=== PATIENT | female | born 1950 | race Caucasian/White ===

== ENCOUNTER → 2017-03-02 | Outpatient (CLI) | payer MEDICARE ==
[~2017-03-02] MED LIST: ASPI-515 PO; ATOR20TA PO; CHOL20003 PO; CITA10TA8 PO; CYAN10005 PO; FLAX100016 PO; HYDR12.58 PO; LORA-445 PO; MULT-208 PO; UBID200C4 PO; VITA10002 PO; [UNRECOGNIZED DRUG - OTHER] PO
[2017-03-02 15:41] LABS: BLOOD UREA NITROGEN 13 mg/dL (7-18)
== END | disposition home or self-care (01) ==
LOC: LAB 14:25
PROVIDERS: ATTEND Radiology Radiation Oncology
DX: C34.12 Malignant neoplasm of upper lobe, left bronchus or lung (principal); T50.8X4A Poisoning by diagnostic agents, undetermined, initial encounter
CPT/HCPCS: 36415; 82565; 84520

== ENCOUNTER → 2017-03-11 | Outpatient (CLI) | payer MEDICARE ==
[~2017-03-11] MED LIST changes: +OMNIPAQUE 350 MG/ML, 75ML BOTTLE ONE
== END | disposition home or self-care (01) ==
LOC: CFH 10:01
PROVIDERS: ATTEND Radiology Radiation Oncology
DX: C34.12 Malignant neoplasm of upper lobe, left bronchus or lung (principal); J43.9 Emphysema, unspecified; I70.0 Atherosclerosis of aorta; R91.8 Other nonspecific abnormal finding of lung field
CPT/HCPCS: 71260; Q9967

== ENCOUNTER → 2017-08-14 | Outpatient (CLI) | payer MEDICARE ==
[~2017-08-14] MED LIST changes: +CHOL2000 PO; -CHOL20003 PO; -OMNIPAQUE 350 MG/ML, 75ML BOTTLE ONE; -UBID200C4 PO; +UBID200C7 PO
== END | disposition home or self-care (01) ==
LOC: ROC 12:47
PROVIDERS: ATTEND Radiology Radiation Oncology
DX: C34.12 Malignant neoplasm of upper lobe, left bronchus or lung (principal)
CPT/HCPCS: G0463

== ENCOUNTER → 2017-08-20 | Outpatient (CLI) | payer MEDICARE | END | disposition home or self-care (01) | LOC: CFH 13:12 | PROVIDERS: ATTEND Radiology Radiation Oncology | DX: N63.20 Unspecified lump in the left breast, unspecified quadrant (principal); I10 Essential (primary) hypertension; Z85.118 Personal history of other malignant neoplasm of bronchus and lung | CPT/HCPCS: 76641; G0206 ==

== ENCOUNTER → 2017-08-24 | Outpatient (CLI) | payer MEDICARE ==
[~2017-08-24] MED LIST changes: +LIDOCAINE 1%, 20ML ONE; +LIDOCAINE 1%-EPI 1:100K, 20ML ONE
== END | disposition home or self-care (01) ==
LOC: CFH 10:16
PROVIDERS: ATTEND Radiology Radiation Oncology
DX: N63.20 Unspecified lump in the left breast, unspecified quadrant (principal); C34.12 Malignant neoplasm of upper lobe, left bronchus or lung
CPT/HCPCS: 19083; 88305; G0206; J3490

== ENCOUNTER 2017-09-07 11:33 | Day surgery (SDC) | payer MEDICARE ==
[~2017-09-07] VITALS: Ht 167.6 cm; Wt 88.5 kg
[~2017-09-07 11:33] MED LIST changes: +BUPIVACAINE/PF 0.5% ONE; -LIDOCAINE 1%, 20ML ONE; -LIDOCAINE 1%-EPI 1:100K, 20ML ONE
[2017-09-07] MEDS ORDERED: LIDOCAINE 1%, 20ML ONE (12:58)
[2017-09-07 13:55] VITALS: BP 148/72
[2017-09-07] MEDS ORDERED: LACTATED RINGERS 1,000 ML IV SCH (13:58)
[2017-09-07] MEDS ORDERED: FENTANYL PF 250 MCG/5ML ONE (13:59)
[2017-09-07] MEDS ORDERED: MIDAZOLAM 1 MG/ML, 2ML ONE (13:59)
[2017-09-07] MEDS ORDERED: DEXAMETHASONE 4 MG/ML, 1ML ONE (14:01)
[2017-09-07] MEDS ORDERED: CEFAZOLIN 1,000 MG ONE (14:01)
[2017-09-07] MEDS ORDERED: SUCCINYLCHOLINE 20 MG/ML, 10ML ONE (14:01)
[2017-09-07] MEDS ORDERED: ONDANSETRON 2MG/ML, 2ML ONE (14:01)
[2017-09-07] MEDS ORDERED: PROPOFOL 10 MG/ML, 20ML ONE (14:01)
[2017-09-07] MEDS ORDERED: EPHEDRINE 50 MG/ML, 1ML ONE (15:02)
[2017-09-07] MEDS ORDERED: KETOROLAC 30 MG/1 ML ONE (15:10)
[2017-09-07] MEDS ORDERED: LABETALOL 5MG/ML, 20ML IV PRN (15:30)
[2017-09-07] MEDS ORDERED: MEPERIDINE/PF 25MG/0.5ML IVPush PRN (15:30)
[2017-09-07] MEDS ORDERED: FENTANYL PF 100 MCG/2ML IV PRN (15:30)
[2017-09-07] MEDS ORDERED: ALBUTEROL/IPRATROPIUM 2.5MG/0.5MG, 3 ML NPPB PRN (15:30)
[2017-09-07] MEDS ORDERED: OXYcodone 5 MG/5 ML ORAL.SOL UDC PO PRN (15:30)
[2017-09-07] MEDS ORDERED: HYDROmorphone 1 MG/ML, 1ML IV PRN (15:30)
[2017-09-07] MEDS ORDERED: LORazepam 2 MG/ML, 1ML IVPush PRN (15:30)
[2017-09-07] MEDS ORDERED: ONDANSETRON 2MG/ML, 2ML IVPush PRN (15:30)
[2017-09-07] MEDS ORDERED: ACETAMINOPHEN 325 MG TABLET PO PRN (15:30)
[2017-09-07] MEDS ORDERED: hydrALAzine 20 MG/ML, 1ML IV PRN (15:30)
[2017-09-07] MEDS ORDERED: MIDAZOLAM 1 MG/ML, 2ML IV PRN (15:30)
[2017-09-07] MEDS ORDERED: METOCLOPRAMIDE 5 MG/ML, 2ML IV PRN (15:30)
[2017-09-07] MEDS ORDERED: PROMETHAZINE 25 MG/ML, 1ML IV PRN (15:30)
[2017-09-07] MEDS ORDERED: DIAZEPAM 5 MG/ML, 2ML IVPush PRN (15:30)
[2017-09-07] MEDS ORDERED: ACETAMINOPHEN 650 MG/20.3 ML UDC ONE (15:54)
[2017-09-07] MEDS ORDERED: OXYcodone 5 MG/5 ML ORAL.SOL UDC ONE (15:54)
[2017-09-07] MEDS ORDERED: FENTANYL PF 100 MCG/2ML ONE (15:54)
== END 2017-09-07 18:40 | disposition home or self-care (01) ==
LOC: CFH 11:33 → EDSTATUS 16:15 → OUT 18:40
PROVIDERS: ATTEND Surgery
DX: C50.912 Malignant neoplasm of unspecified site of left female breast (principal); F41.9 Anxiety disorder, unspecified; F32.9 Major depressive disorder, single episode, unspecified; E78.00 Pure hypercholesterolemia, unspecified; I10 Essential (primary) hypertension; Z85.118 Personal history of other malignant neoplasm of bronchus and lung; Z90.710 Acquired absence of both cervix and uterus; Z98.890 Other specified postprocedural states; Z79.82 Long term (current) use of aspirin
CPT/HCPCS: 19285; 19301; 38525; 38792; 88305; 88307; A9541; G0206; J0330; J0690; J1100; J1885; J2250; J2405; J2704; J3010; J3490; J7120

== ENCOUNTER → 2017-09-25 | Outpatient (CLI) | payer MEDICARE ==
[~2017-09-25] MED LIST changes: -BUPIVACAINE/PF 0.5% ONE
== END | disposition home or self-care (01) ==
LOC: ROC 10:07
PROVIDERS: ATTEND Radiology Radiation Oncology
DX: Z08 Encounter for follow-up examination after completed treatment for malignant neoplasm (principal); C34.12 Malignant neoplasm of upper lobe, left bronchus or lung; C50.912 Malignant neoplasm of unspecified site of left female breast
CPT/HCPCS: 99213; G0463

== ENCOUNTER → 2017-10-16 | Outpatient (CLI) | payer MEDICARE | END | disposition home or self-care (01) | LOC: ROC 13:30 | PROVIDERS: ATTEND Radiology Radiation Oncology | DX: C50.912 Malignant neoplasm of unspecified site of left female breast (principal); C78.02 Secondary malignant neoplasm of left lung | CPT/HCPCS: G0463 ==

== ENCOUNTER → 2017-12-09 | Outpatient (CLI) | payer MEDICARE | END | disposition home or self-care (01) | LOC: ROC 13:13 | PROVIDERS: ATTEND Radiology Radiation Oncology | DX: C50.912 Malignant neoplasm of unspecified site of left female breast (principal) | CPT/HCPCS: G0463 ==

== ENCOUNTER → 2018-08-03 | Outpatient (CLI) | payer MEDICARE ==
[~2018-08-03] MED LIST changes: +OMNIPAQUE 350 MG/ML, 75ML BOTTLE ONE
== END | disposition home or self-care (01) ==
LOC: CFH 13:05
PROVIDERS: ATTEND Radiology Radiation Oncology
DX: Z12.31 Encounter for screening mammogram for malignant neoplasm of breast (principal); R91.8 Other nonspecific abnormal finding of lung field; C34.12 Malignant neoplasm of upper lobe, left bronchus or lung; Z85.3 Personal history of malignant neoplasm of breast
CPT/HCPCS: 71260; 77063; 77067; 82565; Q9967

== ENCOUNTER → 2018-08-05 | Outpatient (CLI) | payer MEDICARE ==
[~2018-08-05] MED LIST changes: -OMNIPAQUE 350 MG/ML, 75ML BOTTLE ONE
== END | disposition home or self-care (01) ==
LOC: ROC 08:25
PROVIDERS: ATTEND Radiology Radiation Oncology
DX: C50.412 Malignant neoplasm of upper-outer quadrant of left female breast (principal); C34.12 Malignant neoplasm of upper lobe, left bronchus or lung
CPT/HCPCS: G0463

== ENCOUNTER → 2018-08-18 | Outpatient (CLI) | payer MEDICARE | END | disposition home or self-care (01) | LOC: CFH 13:00 | PROVIDERS: ATTEND Radiology Radiation Oncology | DX: N63.11 Unspecified lump in the right breast, upper outer quadrant (principal); Z85.3 Personal history of malignant neoplasm of breast | CPT/HCPCS: 77065 ==

== ENCOUNTER → 2018-09-10 | Outpatient (CLI) | payer MEDICARE ==
[~2018-09-10] MED LIST changes: +LIDOCAINE 1%, 20ML ONE; +LIDOCAINE 1%-EPI 1:100K, 30ML ONE; +SODIUM BICARBONATE 4.0%, 5ML ONE; +[UNRECOGNIZED DRUG - OTHER]
== END | disposition home or self-care (01) ==
LOC: CFH 09:34
PROVIDERS: ATTEND Radiology Radiation Oncology
DX: N60.01 Solitary cyst of right breast (principal)
CPT/HCPCS: 19000; 76942; J3490

== ENCOUNTER 2018-09-11 18:34 | Inpatient (IN) | payer MEDICARE ==
[~2018-09-11] VITALS: Ht 167.6 cm; Wt 99.3 kg
[~2018-09-11 18:34] MED LIST changes: -HYDR12.58 PO; +HYDROCHLOROTH12.5 MG PO; -LIDOCAINE 1%, 20ML ONE; -LIDOCAINE 1%-EPI 1:100K, 30ML ONE; -SODIUM BICARBONATE 4.0%, 5ML ONE; -[UNRECOGNIZED DRUG - OTHER]
[2018-09-11] MEDS ORDERED: MORPHINE SULFATE 4 MG/ML, 1ML IVPush PRN (19:30)
[2018-09-11] MEDS ORDERED: SODIUM CHLORIDE FLUSH 10ML SYR IVF ONE (19:30)
[2018-09-11] MEDS ORDERED: ONDANSETRON 2MG/ML, 2ML IVPush ONE (19:30)
[2018-09-11] MEDS ORDERED: SODIUM CHLORIDE 0.9% 1,000ML IVBOLUS ONE (19:30)
[2018-09-11] MEDS ORDERED: ONDANSETRON 2MG/ML, 2ML ONE (19:36)
[2018-09-11] MEDS ORDERED: MORPHINE SULFATE 4 MG/ML, 1ML ONE (19:36)
[2018-09-11 20:02] LABS: INTERNATIONAL NORMALIZED RATIO 1.06 (0.93-1.1)
[2018-09-11 20:04] LABS: ALANINE AMINOTRANSFERASE 14 U/L (12-78); ANION GAP 12 mmol/L (5-15); CALCIUM 8.2 mg/dL (8.5-10.1); CHLORIDE 101 mmol/L (98-107); CREATININE 1.12 mg/dL (0.55-1.02)
[2018-09-11 20:06] LABS: ALKALINE PHOSPHATASE 83 U/L (45-117); BILIRUBIN,TOTAL 0.7 mg/dL (0.2-1.0); TOTAL PROTEIN 6.9 g/dL (6.4-8.2)
[2018-09-11] MEDS ORDERED: OMNIPAQUE 300 MG/ML, 10ML VIAL ONE (20:25)
[2018-09-11 20:35] LABS: BASOPHILS % (AUTO) 0 % (0-1); EOSINOPHILS % (AUTO) 1 % (1-7); LYMPHOCYTES # (AUTO) 0.33 x10^3/uL (1-3.4); LYMPHOCYTES % (AUTO) 4 % (22-44); MD NO; MEAN CORPUSCULAR HEMOGLOBIN 30.7 pg (27.0-34.8); MEAN CORPUSCULAR HGB CONC 34.2 g/dL (32.4-35.8); MEAN CORPUSCULAR VOLUME 89.9 fL (80-100); MEAN PLATELET VOLUME 7.1 fL (7.4-10.4); MONOCYTES # (AUTO) 0.68 x10^3/uL (0.2-0.8); MONOCYTES % (AUTO) 8 % (2-9); NEUTROPHILS # (AUTO) 7.13 x10^3/uL (1.8-6.8); NEUTROPHILS % (AUTO) 87 % (42-75); PLATELET COUNT 579 x10^3/uL (130-400); RED BLOOD COUNT 3.68 x10^6/uL (3.82-5.3); RED CELL DISTRIBUTION WIDTH 13.6 % (9.6-15.2)
[2018-09-11] MEDS ORDERED: AMPICILLIN/SULBACTAM 3 GM in SODIUM CHLORIDE 0.9% 100 ML IV ONE (21:00)
[2018-09-11] MEDS ORDERED: [UNRECOGNIZED DRUG - OTHER] (21:39)
[2018-09-11 22:01] VITALS: BP 96/60
[2018-09-12] MEDS: NS + 20MEQ KCL 1,000 ML IV SCH ×4 (00:07→22:00)
[2018-09-12] MEDS: CIPROFLOXACIN/PMX 400MG/200ML 200 ML IV SCH ×2 (00:07→12:14)
[2018-09-12] MEDS: METRONIDAZOLE PMX 500MG/100ML 100 ML IV SCH ×3 (01:19→17:27)
[2018-09-12 01:29] VITALS: BP 97/64
[2018-09-12 02:29] LABS: CLOSTRIDIUM DIFFICILE ANTIGEN NEGATIVE; CLOSTRIDIUM DIFFICILE TOXIN NEGATIVE (Negative)
[2018-09-12] MEDS: morphine SULFATE 10 MG/ML, 1ML IVPush PRN ×4 (04:12→14:53)
[2018-09-12 05:23] LABS: BASOPHILS # (AUTO) 0.02 x10^3/uL (0-0.1); BASOPHILS % (AUTO) 0 % (0-1); EOSINOPHILS # (AUTO) 0.05 x10^3/uL (0-0.4); EOSINOPHILS % (AUTO) 1 % (1-7); LYMPHOCYTES # (AUTO) 0.63 x10^3/uL (1-3.4); LYMPHOCYTES % (AUTO) 8 % (22-44); MD NO; MEAN CORPUSCULAR HEMOGLOBIN 29.9 pg (27.0-34.8); MEAN CORPUSCULAR HGB CONC 33.3 g/dL (32.4-35.8); MEAN CORPUSCULAR VOLUME 89.6 fL (80-100); MEAN PLATELET VOLUME 6.4 fL (7.4-10.4); MONOCYTES % (AUTO) 6 % (2-9); NEUTROPHILS # (AUTO) 6.99 x10^3/uL (1.8-6.8); NEUTROPHILS % (AUTO) 85 % (42-75); PLATELET COUNT 503 x10^3/uL (130-400); RED BLOOD COUNT 3.43 x10^6/uL (3.82-5.3); RED CELL DISTRIBUTION WIDTH 14.2 % (9.6-15.2)
[2018-09-12 05:35] LABS: ALBUMIN 1.8 g/dL (3.4-5.0); ANION GAP 10 mmol/L (5-15); CALCIUM 7.8 mg/dL (8.5-10.1); CHLORIDE 103 mmol/L (98-107)
[2018-09-12 05:39] LABS: ALANINE AMINOTRANSFERASE 13 U/L (12-78); ALKALINE PHOSPHATASE 75 U/L (45-117); BILIRUBIN,TOTAL 0.5 mg/dL (0.2-1.0); TOTAL PROTEIN 6.3 g/dL (6.4-8.2)
[2018-09-12 07:32] VITALS: BP 90/58
[2018-09-12] MEDS: ONDANSETRON 2MG/ML, 2ML IVPush PRN ×2 (07:46→17:27)
[2018-09-12] MEDS ORDERED: FLAXSEED OIL 1000 MG PO SCH (09:00)
[2018-09-12] MEDS ORDERED: UBIDECARENONE PO SCH (09:00)
[2018-09-12] MEDS: MULTIVITAMIN 1 TABLET PO SCH (09:22)
[2018-09-12] MEDS: CITALOPRAM 10 MG TABLET PO SCH (09:22)
[2018-09-12] MEDS: CHOLECALCIFEROL 1,000 UNIT TABLET PO SCH (09:22)
[2018-09-12] MEDS: VITAMIN E 400 UNITS CAPSULE PO SCH (09:22)
[2018-09-12] MEDS: ATORVASTATIN 20 MG TABLET PO SCH (09:22)
[2018-09-12] MEDS: LISINOPRIL 10 MG TABLET PO SCH (09:22)
[2018-09-12] MEDS: CYANOCOBALAMIN 1,000 MCG TABLET PO SCH (09:22)
[2018-09-12 09:32] LABS: CRYPTOSPORIDIUM ANTIGEN Negative (Negative)
[2018-09-12] MEDS ORDERED: MAALOX/HYOSCYAMINE/LIDOCAINE 45 ML BTL PO ONE (14:30)
[2018-09-12 14:45] VITALS: BP 92/58
[2018-09-12] MEDS: POTASSIUM CHLORIDE 20 MEQ TAB.ER.PRT PO SCH (17:27)
[2018-09-12] MEDS: CALCIUM CARBONATE 500 MG TAB.CHEW PO PRN (19:09)
[2018-09-12 19:59] VITALS: BP 84/54
[2018-09-13] MEDS: ONDANSETRON 2MG/ML, 2ML IVPush PRN ×4 (00:10→23:11)
[2018-09-13] MEDS: METRONIDAZOLE PMX 500MG/100ML 100 ML IV SCH ×3 (01:03→17:16)
[2018-09-13 01:04] VITALS: BP 82/50
[2018-09-13] MEDS: CALCIUM CARBONATE 500 MG TAB.CHEW PO PRN ×2 (04:11→09:02)
[2018-09-13 05:43] LABS: BASOPHILS # (AUTO) 0.01 x10^3/uL (0-0.1); BASOPHILS % (AUTO) 0 % (0-1); EOSINOPHILS # (AUTO) 0.12 x10^3/uL (0-0.4); EOSINOPHILS % (AUTO) 1 % (1-7); LYMPHOCYTES # (AUTO) 0.49 x10^3/uL (1-3.4); LYMPHOCYTES % (AUTO) 5 % (22-44); MD NO; MEAN CORPUSCULAR HEMOGLOBIN 30.3 pg (27.0-34.8); MEAN CORPUSCULAR HGB CONC 33.8 g/dL (32.4-35.8); MEAN CORPUSCULAR VOLUME 89.8 fL (80-100); MEAN PLATELET VOLUME 6.8 fL (7.4-10.4); MONOCYTES # (AUTO) 0.81 x10^3/uL (0.2-0.8); MONOCYTES % (AUTO) 8 % (2-9); NEUTROPHILS # (AUTO) 8.76 x10^3/uL (1.8-6.8); NEUTROPHILS % (AUTO) 86 % (42-75); PLATELET COUNT 436 x10^3/uL (130-400); RED BLOOD COUNT 3.16 x10^6/uL (3.82-5.3); RED CELL DISTRIBUTION WIDTH 13.9 % (9.6-15.2)
[2018-09-13 05:48] LABS: ALANINE AMINOTRANSFERASE 10 U/L (12-78); ALBUMIN 1.6 g/dL (3.4-5.0); ANION GAP 7 mmol/L (5-15); CALCIUM 7.6 mg/dL (8.5-10.1); CHLORIDE 108 mmol/L (98-107); CREATININE 1.03 mg/dL (0.55-1.02)
[2018-09-13 05:50] LABS: ALKALINE PHOSPHATASE 66 U/L (45-117); BILIRUBIN,TOTAL 0.5 mg/dL (0.2-1.0); TOTAL PROTEIN 5.4 g/dL (6.4-8.2)
[2018-09-13] MEDS: morphine SULFATE 10 MG/ML, 1ML IVPush PRN ×2 (06:41)
[2018-09-13 07:38] VITALS: BP 85/54
[2018-09-13] MEDS: NS + 20MEQ KCL 1,000 ML IV SCH ×2 (08:17→23:05)
[2018-09-13] MEDS: POTASSIUM CHLORIDE 20 MEQ TAB.ER.PRT PO SCH (08:21)
[2018-09-13] MEDS: CITALOPRAM 10 MG TABLET PO SCH (08:21)
[2018-09-13] MEDS: ATORVASTATIN 20 MG TABLET PO SCH (08:21)
[2018-09-13] MEDS: MULTIVITAMIN 1 TABLET PO SCH (08:21)
[2018-09-13] MEDS: VITAMIN E 400 UNITS CAPSULE PO SCH (08:22)
[2018-09-13] MEDS: LISINOPRIL 10 MG TABLET PO SCH (08:22)
[2018-09-13] MEDS: CYANOCOBALAMIN 1,000 MCG TABLET PO SCH (08:22)
[2018-09-13] MEDS: CHOLECALCIFEROL 1,000 UNIT TABLET PO SCH (08:22)
[2018-09-13] MEDS ORDERED: SODIUM CHLORIDE 0.9% 1,000ML IVBOLUS ONE (09:30)
[2018-09-13] MEDS: DICYCLOMINE 10 MG/ML, 2ML IM PRN (11:19)
[2018-09-13] MEDS: CIPROFLOXACIN/PMX 400MG/200ML 200 ML IV SCH ×3 (11:45→23:51)
[2018-09-13 13:56] VITALS: BP 99/65
[2018-09-13] MEDS ORDERED: POTASSIUM CHLORIDE 20 MEQ TAB.ER.PRT PO SCH (17:00)
[2018-09-13] MEDS ORDERED: FAMOTIDINE 20 MG TABLET ONE (17:14)
[2018-09-13] MEDS: FAMOTIDINE 20 MG TABLET PO SCH (17:18)
[2018-09-13 21:21] VITALS: BP 95/48
[2018-09-13 21:25] VITALS: BP 94/45
[2018-09-14] MEDS: METRONIDAZOLE PMX 500MG/100ML 100 ML IV SCH ×3 (00:56→16:38)
[2018-09-14 04:05] VITALS: BP 90/53
[2018-09-14 04:43] LABS: BASOPHILS # (AUTO) 0.02 x10^3/uL (0-0.1); BASOPHILS % (AUTO) 0 % (0-1); EOSINOPHILS # (AUTO) 0.13 x10^3/uL (0-0.4); EOSINOPHILS % (AUTO) 2 % (1-7); LYMPHOCYTES # (AUTO) 0.35 x10^3/uL (1-3.4); LYMPHOCYTES % (AUTO) 7 % (22-44); MD NO; MEAN CORPUSCULAR HEMOGLOBIN 30.7 pg (27.0-34.8); MEAN CORPUSCULAR HGB CONC 33.8 g/dL (32.4-35.8); MEAN CORPUSCULAR VOLUME 90.8 fL (80-100); MEAN PLATELET VOLUME 6.4 fL (7.4-10.4); MONOCYTES # (AUTO) 0.47 x10^3/uL (0.2-0.8); MONOCYTES % (AUTO) 9 % (2-9); NEUTROPHILS # (AUTO) 4.35 x10^3/uL (1.8-6.8); NEUTROPHILS % (AUTO) 82 % (42-75); PLATELET COUNT 374 x10^3/uL (130-400); RED BLOOD COUNT 2.79 x10^6/uL (3.82-5.3); RED CELL DISTRIBUTION WIDTH 14.3 % (9.6-15.2)
[2018-09-14 04:52] LABS: ANION GAP 8 mmol/L (5-15); CALCIUM 7.2 mg/dL (8.5-10.1); CHLORIDE 110 mmol/L (98-107)
[2018-09-14 04:54] LABS: CREATININE 0.86 mg/dL (0.55-1.02)
[2018-09-14] MEDS: ONDANSETRON 2MG/ML, 2ML IVPush PRN (05:45)
[2018-09-14 07:39] VITALS: BP 104/63
[2018-09-14] MEDS: LISINOPRIL 10 MG TABLET PO SCH (09:00)
[2018-09-14] MEDS: MULTIVITAMIN 1 TABLET PO SCH (09:10)
[2018-09-14] MEDS: VITAMIN E 400 UNITS CAPSULE PO SCH (09:10)
[2018-09-14] MEDS: NS + 20MEQ KCL 1,000 ML IV SCH ×2 (09:10→20:56)
[2018-09-14] MEDS: ATORVASTATIN 20 MG TABLET PO SCH (09:11)
[2018-09-14] MEDS: CITALOPRAM 10 MG TABLET PO SCH (09:11)
[2018-09-14] MEDS: CYANOCOBALAMIN 1,000 MCG TABLET PO SCH (09:11)
[2018-09-14] MEDS: CHOLECALCIFEROL 1,000 UNIT TABLET PO SCH (09:11)
[2018-09-14] MEDS ORDERED: SODIUM CHLORIDE 0.9% 1,000ML IVBOLUS ONE (09:30)
[2018-09-14] MEDS: DICYCLOMINE 10 MG/ML, 2ML IM PRN (09:44)
[2018-09-14] MEDS ORDERED: ONDANSETRON 2MG/ML, 2ML IVPush ONE (10:00)
[2018-09-14] MEDS: SUCRALFATE 1 GM/10 ML UDC PO SCH ×4 (11:48→21:00)
[2018-09-14] MEDS: CIPROFLOXACIN/PMX 400MG/200ML 200 ML IV SCH (12:26)
[2018-09-14] MEDS: POTASSIUM CHLORIDE 20 MEQ PACKET PO SCH (16:35)
[2018-09-14 20:07] VITALS: BP 104/68
[2018-09-14] MEDS: FAMOTIDINE 20 MG TABLET PO SCH (20:56)
[2018-09-15] MEDS: CIPROFLOXACIN/PMX 400MG/200ML 200 ML IV SCH ×3 (00:23→23:43)
[2018-09-15] MEDS: METRONIDAZOLE PMX 500MG/100ML 100 ML IV SCH ×3 (01:41→16:47)
[2018-09-15 02:26] VITALS: BP 105/69
[2018-09-15 05:51] LABS: BASOPHILS % (AUTO) 0 % (0-1); EOSINOPHILS # (AUTO) 0.22 x10^3/uL (0-0.4); EOSINOPHILS % (AUTO) 4 % (1-7); LYMPHOCYTES # (AUTO) 0.39 x10^3/uL (1-3.4); LYMPHOCYTES % (AUTO) 7 % (22-44); MD NO; MEAN CORPUSCULAR HEMOGLOBIN 31.1 pg (27.0-34.8); MEAN CORPUSCULAR HGB CONC 34.2 g/dL (32.4-35.8); MEAN CORPUSCULAR VOLUME 90.9 fL (80-100); MEAN PLATELET VOLUME 6.4 fL (7.4-10.4); MONOCYTES % (AUTO) 11 % (2-9); NEUTROPHILS # (AUTO) 4.07 x10^3/uL (1.8-6.8); NEUTROPHILS % (AUTO) 77 % (42-75); PLATELET COUNT 410 x10^3/uL (130-400); RED BLOOD COUNT 2.86 x10^6/uL (3.82-5.3); RED CELL DISTRIBUTION WIDTH 14.3 % (9.6-15.2)
[2018-09-15 05:54] LABS: ALBUMIN 1.4 g/dL (3.4-5.0); ANION GAP 7 mmol/L (5-15); CALCIUM 7.4 mg/dL (8.5-10.1); CHLORIDE 113 mmol/L (98-107)
[2018-09-15 05:59] LABS: ALANINE AMINOTRANSFERASE 12 U/L (12-78); ALKALINE PHOSPHATASE 67 U/L (45-117); BILIRUBIN,TOTAL 0.3 mg/dL (0.2-1.0); TOTAL PROTEIN 4.8 g/dL (6.4-8.2)
[2018-09-15 08:00] VITALS: BP 105/69
[2018-09-15] MEDS: CITALOPRAM 10 MG TABLET PO SCH (08:30)
[2018-09-15] MEDS: ATORVASTATIN 20 MG TABLET PO SCH (08:30)
[2018-09-15] MEDS: LISINOPRIL 10 MG TABLET PO SCH (08:32)
[2018-09-15] MEDS: MULTIVITAMIN 1 TABLET PO SCH (08:33)
[2018-09-15] MEDS: NS + 20MEQ KCL 1,000 ML IV SCH ×2 (08:33→16:47)
[2018-09-15] MEDS: POTASSIUM CHLORIDE 20 MEQ PACKET PO SCH ×2 (08:33→15:37)
[2018-09-15] MEDS: CHOLECALCIFEROL 1,000 UNIT TABLET PO SCH (08:34)
[2018-09-15] MEDS: VITAMIN E 400 UNITS CAPSULE PO SCH (08:34)
[2018-09-15] MEDS: CYANOCOBALAMIN 1,000 MCG TABLET PO SCH (08:34)
[2018-09-15] MEDS: FAMOTIDINE 20 MG TABLET PO SCH ×2 (08:34→20:32)
[2018-09-15] MEDS: CHOLESTYRAMINE LIGHT 4GM PACKET PO SCH ×3 (09:51→21:33)
[2018-09-15] MEDS: SUCRALFATE 1 GM/10 ML UDC PO SCH ×4 (09:51→20:32)
[2018-09-15 12:30] VITALS: BP 100/88
[2018-09-15] MEDS: ONDANSETRON 2MG/ML, 2ML IVPush PRN ×2 (12:44→18:28)
[2018-09-15 19:04] VITALS: BP 110/71
[2018-09-16] MEDS: METRONIDAZOLE PMX 500MG/100ML 100 ML IV SCH ×3 (01:27→17:17)
[2018-09-16 03:29] VITALS: BP 115/72
[2018-09-16] MEDS: NS + 20MEQ KCL 1,000 ML IV SCH ×2 (03:37→22:02)
[2018-09-16] MEDS: CHOLESTYRAMINE LIGHT 4GM PACKET PO SCH ×2 (03:37→08:42)
[2018-09-16 05:07] LABS: BASOPHILS # (AUTO) 0.02 x10^3/uL (0-0.1); BASOPHILS % (AUTO) 0 % (0-1); EOSINOPHILS # (AUTO) 0.17 x10^3/uL (0-0.4); EOSINOPHILS % (AUTO) 3 % (1-7); LYMPHOCYTES % (AUTO) 8 % (22-44); MD NO; MEAN CORPUSCULAR HEMOGLOBIN 30.6 pg (27.0-34.8); MEAN PLATELET VOLUME 6.3 fL (7.4-10.4); MONOCYTES # (AUTO) 0.67 x10^3/uL (0.2-0.8); MONOCYTES % (AUTO) 13 % (2-9); NEUTROPHILS # (AUTO) 3.92 x10^3/uL (1.8-6.8); NEUTROPHILS % (AUTO) 76 % (42-75); PLATELET COUNT 422 x10^3/uL (130-400); RED BLOOD COUNT 2.93 x10^6/uL (3.82-5.3); RED CELL DISTRIBUTION WIDTH 14.3 % (9.6-15.2)
[2018-09-16 05:10] LABS: ANION GAP 9 mmol/L (5-15); CALCIUM 6.8 mg/dL (8.5-10.1); CHLORIDE 113 mmol/L (98-107)
[2018-09-16] MEDS: SUCRALFATE 1 GM/10 ML UDC PO SCH ×5 (07:00→22:01)
[2018-09-16 07:59] VITALS: BP 107/67
[2018-09-16] MEDS: POTASSIUM CHLORIDE 20 MEQ PACKET PO SCH ×2 (08:00→17:17)
[2018-09-16] MEDS ORDERED: POTASSIUM CHLORIDE 20 MEQ TAB.ER.PRT PO SCH (08:00)
[2018-09-16] MEDS: CITALOPRAM 10 MG TABLET PO SCH (08:42)
[2018-09-16] MEDS: FAMOTIDINE 20 MG TABLET PO SCH ×2 (08:42→22:27)
[2018-09-16] MEDS: ATORVASTATIN 20 MG TABLET PO SCH (08:42)
[2018-09-16] MEDS: LISINOPRIL 10 MG TABLET PO SCH (08:47)
[2018-09-16] MEDS: CHOLECALCIFEROL 1,000 UNIT TABLET PO SCH (09:00)
[2018-09-16] MEDS: MULTIVITAMIN 1 TABLET PO SCH (09:00)
[2018-09-16] MEDS: CYANOCOBALAMIN 1,000 MCG TABLET PO SCH (09:00)
[2018-09-16] MEDS: VITAMIN E 400 UNITS CAPSULE PO SCH (09:00)
[2018-09-16 11:25] LABS: % IRON SATURATION 15 % (20-55); IRON LEVEL 17 mcg/dL (50-170); TOTAL IRON BINDING CAPACITY 114 mcg/dL (250-450)
[2018-09-16 12:04] LABS: FOLATE LEVEL > 20.0 ng/mL (3.1-17.5)
[2018-09-16 12:09] VITALS: BP 113/68
[2018-09-16] MEDS: CIPROFLOXACIN/PMX 400MG/200ML 200 ML IV SCH ×2 (12:36→23:57)
[2018-09-16 19:39] VITALS: BP 125/83
[2018-09-16] MEDS: MOVIPREP POWDER 1 PREP KIT PO SCH (22:02)
[2018-09-16] MEDS: ONDANSETRON 2MG/ML, 2ML IVPush PRN (22:03)
[2018-09-17] MEDS: METRONIDAZOLE PMX 500MG/100ML 100 ML IV SCH ×3 (01:33→19:59)
[2018-09-17 01:34] VITALS: BP 103/68
[2018-09-17 05:54] LABS: ALBUMIN 1.2 g/dL (3.4-5.0); ANION GAP 11 mmol/L (5-15); CALCIUM 6.9 mg/dL (8.5-10.1); CHLORIDE 114 mmol/L (98-107)
[2018-09-17 05:56] LABS: BASOPHILS # (AUTO) 0.02 x10^3/uL (0-0.1); BASOPHILS % (AUTO) 1 % (0-1); EOSINOPHILS # (AUTO) 0.18 x10^3/uL (0-0.4); EOSINOPHILS % (AUTO) 5 % (1-7); LYMPHOCYTES # (AUTO) 0.58 x10^3/uL (1-3.4); LYMPHOCYTES % (AUTO) 15 % (22-44); MD NO; MEAN CORPUSCULAR HEMOGLOBIN 29.6 pg (27.0-34.8); MEAN CORPUSCULAR HGB CONC 33.4 g/dL (32.4-35.8); MEAN CORPUSCULAR VOLUME 88.8 fL (80-100); MEAN PLATELET VOLUME 6.1 fL (7.4-10.4); MONOCYTES # (AUTO) 0.52 x10^3/uL (0.2-0.8); MONOCYTES % (AUTO) 13 % (2-9); NEUTROPHILS # (AUTO) 2.59 x10^3/uL (1.8-6.8); NEUTROPHILS % (AUTO) 67 % (42-75); PLATELET COUNT 441 x10^3/uL (130-400); RED BLOOD COUNT 2.82 x10^6/uL (3.82-5.3); RED CELL DISTRIBUTION WIDTH 14.4 % (9.6-15.2)
[2018-09-17 05:58] LABS: ALANINE AMINOTRANSFERASE 12 U/L (12-78); ALKALINE PHOSPHATASE 64 U/L (45-117); BILIRUBIN,TOTAL 0.4 mg/dL (0.2-1.0); CREATININE 0.74 mg/dL (0.55-1.02); TOTAL PROTEIN 4.4 g/dL (6.4-8.2)
[2018-09-17] MEDS: ONDANSETRON 2MG/ML, 2ML IVPush PRN (06:03)
[2018-09-17] MEDS: SUCRALFATE 1 GM/10 ML UDC PO SCH ×2 (06:15→09:36)
[2018-09-17 06:48] VITALS: BP 111/65
[2018-09-17] MEDS: POTASSIUM CHLORIDE 20 MEQ PACKET PO SCH ×2 (07:31→16:55)
[2018-09-17] MEDS: ATORVASTATIN 20 MG TABLET PO SCH (07:32)
[2018-09-17] MEDS: MOVIPREP POWDER 1 PREP KIT PO SCH (07:32)
[2018-09-17] MEDS: LISINOPRIL 10 MG TABLET PO SCH (07:32)
[2018-09-17] MEDS: MULTIVITAMIN 1 TABLET PO SCH (07:32)
[2018-09-17] MEDS: CYANOCOBALAMIN 1,000 MCG TABLET PO SCH (07:32)
[2018-09-17] MEDS: CITALOPRAM 10 MG TABLET PO SCH (07:32)
[2018-09-17] MEDS: FAMOTIDINE 20 MG TABLET PO SCH ×2 (07:32→21:00)
[2018-09-17] MEDS: CHOLECALCIFEROL 1,000 UNIT TABLET PO SCH (07:32)
[2018-09-17] MEDS: NS + 20MEQ KCL 1,000 ML IV SCH ×2 (08:14→19:59)
[2018-09-17] MEDS ORDERED: MIDAZOLAM 1 MG/ML, 5ML ONE (10:00)
[2018-09-17] MEDS ORDERED: FENTANYL PF 100 MCG/2ML ONE (10:00)
[2018-09-17] MEDS: methylPREDNISolone SOD SUCC 40 MG/ML IV SCH ×2 (11:50→23:28)
[2018-09-17 11:54] VITALS: BP 108/71
[2018-09-17] MEDS: CIPROFLOXACIN/PMX 400MG/200ML 200 ML IV SCH ×2 (12:48→23:28)
[2018-09-17 13:55] VITALS: BP 123/72
[2018-09-17 19:03] VITALS: BP 112/68
[2018-09-18 02:00] VITALS: BP 117/68
[2018-09-18] MEDS: METRONIDAZOLE PMX 500MG/100ML 100 ML IV SCH ×3 (03:58→23:20)
[2018-09-18] MEDS: NS + 20MEQ KCL 1,000 ML IV SCH (03:58)
[2018-09-18 05:18] LABS: BASOPHILS % (AUTO) 0 % (0-1); EOSINOPHILS % (AUTO) 0 % (1-7); LYMPHOCYTES # (AUTO) 0.38 x10^3/uL (1-3.4); LYMPHOCYTES % (AUTO) 8 % (22-44); MD NO; MEAN CORPUSCULAR HEMOGLOBIN 29.8 pg (27.0-34.8); MEAN CORPUSCULAR HGB CONC 33.3 g/dL (32.4-35.8); MEAN CORPUSCULAR VOLUME 89.3 fL (80-100); MEAN PLATELET VOLUME 6.3 fL (7.4-10.4); MONOCYTES # (AUTO) 0.13 x10^3/uL (0.2-0.8); MONOCYTES % (AUTO) 3 % (2-9); NEUTROPHILS # (AUTO) 4.36 x10^3/uL (1.8-6.8); NEUTROPHILS % (AUTO) 89 % (42-75); PLATELET COUNT 532 x10^3/uL (130-400); RED BLOOD COUNT 3.28 x10^6/uL (3.82-5.3); RED CELL DISTRIBUTION WIDTH 14.6 % (9.6-15.2)
[2018-09-18 05:19] LABS: ALBUMIN 1.5 g/dL (3.4-5.0); ANION GAP 13 mmol/L (5-15); CALCIUM 7.5 mg/dL (8.5-10.1); CHLORIDE 111 mmol/L (98-107); CREATININE 0.92 mg/dL (0.55-1.02)
[2018-09-18 06:41] VITALS: BP 101/69
[2018-09-18] MEDS: POTASSIUM CHLORIDE 20 MEQ PACKET PO SCH (07:54)
[2018-09-18] MEDS: CYANOCOBALAMIN 1,000 MCG TABLET PO SCH (07:55)
[2018-09-18] MEDS: MULTIVITAMIN 1 TABLET PO SCH (07:55)
[2018-09-18] MEDS: CHOLECALCIFEROL 1,000 UNIT TABLET PO SCH (07:55)
[2018-09-18] MEDS: FAMOTIDINE 20 MG TABLET PO SCH ×2 (07:56→20:14)
[2018-09-18] MEDS: CITALOPRAM 10 MG TABLET PO SCH (07:56)
[2018-09-18] MEDS: ATORVASTATIN 20 MG TABLET PO SCH (07:57)
[2018-09-18] MEDS: LISINOPRIL 10 MG TABLET PO SCH (08:01)
[2018-09-18 08:02] VITALS: BP 118/73
[2018-09-18] MEDS ORDERED: MAGNESIUM SULF. PMX 20GM/500ML 500 ML IV PRN (09:30)
[2018-09-18] MEDS ORDERED: MAGNESIUM SULFATE PMX 2GM/50ML 50 ML IV ONE (10:00)
[2018-09-18] MEDS: SODIUM BICARBONATE 8.4% 150 MEQ in DEXTROSE 5% 1,000 ML IV SCH ×2 (10:54→20:14)
[2018-09-18] MEDS: ENOXAPARIN 40 MG/0.4 ML SQ SCH (10:56)
[2018-09-18] MEDS: IRON SUCROSE COMPLEX 100MG/5ML IV SCH ×3 (10:56→11:22)
[2018-09-18] MEDS: methylPREDNISolone SOD SUCC 40 MG/ML IV SCH ×2 (12:19→23:21)
[2018-09-18 13:54] VITALS: BP 95/62
[2018-09-18] MEDS: CIPROFLOXACIN/PMX 400MG/200ML 200 ML IV SCH (14:10)
[2018-09-18] MEDS ORDERED: POTASSIUM CHLORIDE 20 MEQ PACKET PO SCH (17:00)
[2018-09-18] MEDS: ACETAMINOPHEN 325 MG TABLET PO PRN ×2 (18:46→23:26)
[2018-09-18 19:55] VITALS: BP 97/64
[2018-09-18] MEDS ORDERED: NS + 20MEQ KCL 1,000 ML IV SCH (21:41)
[2018-09-19] MEDS: CIPROFLOXACIN/PMX 400MG/200ML 200 ML IV SCH ×2 (01:18→12:46)
[2018-09-19 01:30] VITALS: BP 101/67
[2018-09-19] MEDS: SODIUM BICARBONATE 8.4% 150 MEQ in DEXTROSE 5% 1,000 ML IV SCH ×2 (03:49→12:30)
[2018-09-19] MEDS: ACETAMINOPHEN 325 MG TABLET PO PRN ×5 (03:55→22:10)
[2018-09-19 05:47] LABS: MEAN CORPUSCULAR HEMOGLOBIN 30.8 pg (27.0-34.8); MEAN CORPUSCULAR HGB CONC 34.6 g/dL (32.4-35.8); MEAN CORPUSCULAR VOLUME 89.1 fL (80-100); MEAN PLATELET VOLUME 6.2 fL (7.4-10.4); PLATELET COUNT 436 x10^3/uL (130-400); RED BLOOD COUNT 2.83 x10^6/uL (3.82-5.3); RED CELL DISTRIBUTION WIDTH 14.2 % (9.6-15.2)
[2018-09-19 05:53] LABS: ALBUMIN 1.5 g/dL (3.4-5.0); ANION GAP 8 mmol/L (5-15); CALCIUM 7.1 mg/dL (8.5-10.1); CHLORIDE 108 mmol/L (98-107)
[2018-09-19 06:04] LABS: CREATININE 0.84 mg/dL (0.55-1.02)
[2018-09-19 06:14] LABS: BASOPHILS # (AUTO) 0.01 x10^3/uL (0-0.1); BASOPHILS % (AUTO) 0 % (0-1); EOSINOPHILS % (AUTO) 0 % (1-7); LYMPHOCYTES % (AUTO) 9 % (22-44); MD SCAN; MONOCYTES # (AUTO) 0.34 x10^3/uL (0.2-0.8); MONOCYTES % (AUTO) 7 % (2-9); NEUTROPHILS % (AUTO) 84 % (42-75)
[2018-09-19 06:50] VITALS: BP 116/73
[2018-09-19] MEDS: IRON SUCROSE COMPLEX 100MG/5ML IV SCH (08:08)
[2018-09-19] MEDS: METRONIDAZOLE PMX 500MG/100ML 100 ML IV SCH ×3 (08:08→23:52)
[2018-09-19] MEDS: CITALOPRAM 10 MG TABLET PO SCH (08:09)
[2018-09-19] MEDS: ATORVASTATIN 20 MG TABLET PO SCH (08:10)
[2018-09-19] MEDS: MULTIVITAMIN 1 TABLET PO SCH (08:12)
[2018-09-19] MEDS: FAMOTIDINE 20 MG TABLET PO SCH ×2 (08:12→20:40)
[2018-09-19] MEDS: CYANOCOBALAMIN 1,000 MCG TABLET PO SCH (08:13)
[2018-09-19] MEDS: CHOLECALCIFEROL 1,000 UNIT TABLET PO SCH (08:13)
[2018-09-19] MEDS: LISINOPRIL 10 MG TABLET PO SCH (08:13)
[2018-09-19] MEDS: ENOXAPARIN 40 MG/0.4 ML SQ SCH (08:13)
[2018-09-19] MEDS: methylPREDNISolone SOD SUCC 40 MG/ML IV SCH ×2 (12:30→23:52)
[2018-09-19] MEDS ORDERED: POTASSIUM CHLORIDE 20 MEQ TAB.ER.PRT ONE (12:34)
[2018-09-19] MEDS: POTASSIUM CHLORIDE 20 MEQ TAB.ER.PRT PO SCH (12:45)
[2018-09-19 14:04] VITALS: BP 102/64
[2018-09-19 20:20] VITALS: BP 103/64
[2018-09-19] MEDS ORDERED: DEXTROSE 5% IV SCH (23:00)
[2018-09-19] MEDS ORDERED: POTASSIUM ACETATE IV SCH (23:00)
[2018-09-19] MEDS: SODIUM ACETATE 150 MEQ in DEXTROSE 5% 1,000 ML IV SCH (23:53)
[2018-09-20] MEDS: CIPROFLOXACIN/PMX 400MG/200ML 200 ML IV SCH ×2 (01:28→13:30)
[2018-09-20 01:38] VITALS: BP 122/74
[2018-09-20] MEDS: ACETAMINOPHEN 325 MG TABLET PO PRN ×2 (05:09→20:17)
[2018-09-20 05:41] LABS: BASOPHILS % (AUTO) 0 % (0-1); EOSINOPHILS % (AUTO) 0 % (1-7); LYMPHOCYTES # (AUTO) 0.55 x10^3/uL (1-3.4); LYMPHOCYTES % (AUTO) 7 % (22-44); MD NO; MEAN CORPUSCULAR HEMOGLOBIN 30.5 pg (27.0-34.8); MEAN CORPUSCULAR VOLUME 89.7 fL (80-100); MEAN PLATELET VOLUME 6.2 fL (7.4-10.4); MONOCYTES # (AUTO) 0.43 x10^3/uL (0.2-0.8); MONOCYTES % (AUTO) 5 % (2-9); NEUTROPHILS # (AUTO) 7.22 x10^3/uL (1.8-6.8); NEUTROPHILS % (AUTO) 88 % (42-75); PLATELET COUNT 411 x10^3/uL (130-400); RED BLOOD COUNT 2.85 x10^6/uL (3.82-5.3); RED CELL DISTRIBUTION WIDTH 14.6 % (9.6-15.2)
[2018-09-20 05:44] LABS: ALBUMIN 1.5 g/dL (3.4-5.0); CHLORIDE 107 mmol/L (98-107)
[2018-09-20 05:52] LABS: ALANINE AMINOTRANSFERASE 16 U/L (12-78); ALKALINE PHOSPHATASE 72 U/L (45-117); ANION GAP 6 mmol/L (5-15); BILIRUBIN,TOTAL 0.2 mg/dL (0.2-1.0); TOTAL PROTEIN 4.4 g/dL (6.4-8.2)
[2018-09-20] MEDS ORDERED: POTASSIUM CHLORIDE 20 MEQ TAB.ER.PRT PO ONE ×2 (07:00→11:30)
[2018-09-20] MEDS: METRONIDAZOLE PMX 500MG/100ML 100 ML IV SCH ×3 (07:56→23:12)
[2018-09-20 08:14] VITALS: BP 102/64
[2018-09-20] MEDS: CITALOPRAM 10 MG TABLET PO SCH (09:58)
[2018-09-20] MEDS: CHOLECALCIFEROL 1,000 UNIT TABLET PO SCH (09:58)
[2018-09-20] MEDS: FAMOTIDINE 20 MG TABLET PO SCH ×2 (09:58→20:17)
[2018-09-20] MEDS: CYANOCOBALAMIN 1,000 MCG TABLET PO SCH (09:58)
[2018-09-20] MEDS: POTASSIUM CHLORIDE 20 MEQ TAB.ER.PRT PO SCH ×2 (09:58→18:25)
[2018-09-20] MEDS: ENOXAPARIN 40 MG/0.4 ML SQ SCH (09:58)
[2018-09-20] MEDS: ATORVASTATIN 20 MG TABLET PO SCH (09:58)
[2018-09-20] MEDS: MULTIVITAMIN 1 TABLET PO SCH (09:58)
[2018-09-20] MEDS: methylPREDNISolone SOD SUCC 40 MG/ML IV SCH ×3 (10:00→23:21)
[2018-09-20] MEDS: IRON SUCROSE COMPLEX 100MG/5ML IV SCH (10:16)
[2018-09-20] MEDS: LISINOPRIL 10 MG TABLET PO SCH (10:18)
[2018-09-20 13:40] VITALS: BP 103/66
[2018-09-20] MEDS: SODIUM ACETATE 150 MEQ in DEXTROSE 5% 1,000 ML IV SCH (15:26)
[2018-09-20 20:13] VITALS: BP 116/71
[2018-09-21] MEDS: SODIUM ACETATE 150 MEQ in DEXTROSE 5% 1,000 ML IV SCH (01:48)
[2018-09-21] MEDS: CIPROFLOXACIN/PMX 400MG/200ML 200 ML IV SCH ×2 (01:48→13:30)
[2018-09-21 01:52] VITALS: BP 124/76
[2018-09-21] MEDS: ACETAMINOPHEN 325 MG TABLET PO PRN (02:02)
[2018-09-21 04:56] LABS: MEAN CORPUSCULAR HGB CONC 34.2 g/dL (32.4-35.8); MEAN CORPUSCULAR VOLUME 90.6 fL (80-100); PLATELET COUNT 432 x10^3/uL (130-400); RED BLOOD COUNT 2.92 x10^6/uL (3.82-5.3); RED CELL DISTRIBUTION WIDTH 15.3 % (9.6-15.2)
[2018-09-21 05:01] LABS: ALBUMIN 1.6 g/dL (3.4-5.0); ANION GAP 8 mmol/L (5-15); CALCIUM 7.1 mg/dL (8.5-10.1); CHLORIDE 104 mmol/L (98-107)
[2018-09-21 05:05] LABS: ALANINE AMINOTRANSFERASE 19 U/L (12-78); ALKALINE PHOSPHATASE 78 U/L (45-117); BILIRUBIN,TOTAL 0.2 mg/dL (0.2-1.0); CREATININE 0.87 mg/dL (0.55-1.02); TOTAL PROTEIN 4.7 g/dL (6.4-8.2)
[2018-09-21 05:26] LABS: MD YES
[2018-09-21 05:29] LABS: ANISOCYTOSIS 1+; BAND#(MANUAL) 1.09 x10^3/uL; BANDS%(MANUAL) 10 % (0-7); LYMPH#(MANUAL) 0.33 x10^3/uL (1-3.4); LYMPHS% (MANUAL) 3 % (22-44); METAMYELOCYTES# (MANUAL) 0.33 x10^3/uL (0-0); METAMYELOCYTES% (MANUAL) 3 % (0-1); MONOS#(MANUAL) 0.22 x10^3/uL (0.3-2.7); MONOS% (MANUAL) 2 % (2-9); NRBC % (MANUAL) 2 % (0-1); POLYCHROMASIA 1+; SEG#(MANUAL) 8.94 x10^3/uL (1.8-6.8); SEGS% (MANUAL) 82 % (42-75); TEAR DROPS 1+
[2018-09-21 05:30] LABS: <PLATELET ESTIMATE> ADEQUATE; <PLT MORPHOLOGY> NORMAL PLT MORPH
[2018-09-21] MEDS ORDERED: MAGNESIUM SULFATE PMX 2GM/50ML 50 ML IV ONE (07:00)
[2018-09-21 08:02] VITALS: BP 131/77
[2018-09-21] MEDS: FAMOTIDINE 20 MG TABLET PO SCH (08:16)
[2018-09-21] MEDS: POTASSIUM CHLORIDE 20 MEQ TAB.ER.PRT PO SCH (08:16)
[2018-09-21] MEDS: MULTIVITAMIN 1 TABLET PO SCH (08:16)
[2018-09-21] MEDS: LISINOPRIL 10 MG TABLET PO SCH (08:17)
[2018-09-21] MEDS: CHOLECALCIFEROL 1,000 UNIT TABLET PO SCH (08:17)
[2018-09-21] MEDS: CYANOCOBALAMIN 1,000 MCG TABLET PO SCH (08:17)
[2018-09-21] MEDS: CITALOPRAM 10 MG TABLET PO SCH (08:17)
[2018-09-21] MEDS: ENOXAPARIN 40 MG/0.4 ML SQ SCH (08:17)
[2018-09-21] MEDS: IRON SUCROSE COMPLEX 100MG/5ML IV SCH (08:18)
[2018-09-21] MEDS ORDERED: NEUTRA PHOS K 250 MG TABLET PO SCH (09:00)
[2018-09-21] MEDS: METRONIDAZOLE PMX 500MG/100ML 100 ML IV SCH (10:34)
[2018-09-21] MEDS: methylPREDNISolone SOD SUCC 40 MG/ML IV SCH (11:33)
[2018-09-21] MEDS ORDERED: CIPR500T87 PO (11:48)
[2018-09-21] MEDS ORDERED: METR500T PO (11:48)
[2018-09-21 14:26] VITALS: BP 129/80
[2018-09-21] MEDS ORDERED: FUROSEMIDE 40 MG TABLET PO ONE (14:30)
== END 2018-09-21 15:00 | disposition home or self-care (01) | DRG 385 ==
LOC: ED 20:14 → EDIP 21:03 → 4NOR 21:50
PROVIDERS: ADMIT Internal Medicine; ATTEND Hospitalist
PROC: 0DB68ZX Excision of Stomach, Via Natural or Artificial Opening Endoscopic, Diagnostic (ICD-10-PCS; 2018-09-17)
PROC: 0DBM8ZX Excision of Descending Colon, Via Natural or Artificial Opening Endoscopic, Diagnostic (ICD-10-PCS; 2018-09-17)
PROC: 0DB98ZX Excision of Duodenum, Via Natural or Artificial Opening Endoscopic, Diagnostic (ICD-10-PCS; principal; 2018-09-17 08:00)
DX: K51.911 Ulcerative colitis, unspecified with rectal bleeding (principal); E43 Unspecified severe protein-calorie malnutrition; M48.56XA Collapsed vertebra, not elsewhere classified, lumbar region, initial encounter for fracture; R65.10 Systemic inflammatory response syndrome (SIRS) of non-infectious origin without acute organ dysfunction; E78.5 Hyperlipidemia, unspecified; E83.42 Hypomagnesemia; E86.9 Volume depletion, unspecified; E87.6 Hypokalemia; I11.9 Hypertensive heart disease without heart failure; K21.9 Gastro-esophageal reflux disease without esophagitis; K57.30 Diverticulosis of large intestine without perforation or abscess without bleeding; K59.00 Constipation, unspecified; N28.9 Disorder of kidney and ureter, unspecified; Z66 Do not resuscitate; Z82.49 Family history of ischemic heart disease and other diseases of the circulatory system; Z85.118 Personal history of other malignant neoplasm of bronchus and lung; Z85.3 Personal history of malignant neoplasm of breast; Z87.891 Personal history of nicotine dependence; Z90.2 Acquired absence of lung [part of]; Z90.710 Acquired absence of both cervix and uterus; Z92.21 Personal history of antineoplastic chemotherapy; Z92.3 Personal history of irradiation; D47.3 Essential (hemorrhagic) thrombocythemia; R00.0 Tachycardia, unspecified; Z79.82 Long term (current) use of aspirin; Z79.899 Other long term (current) drug therapy; D50.9 Iron deficiency anemia, unspecified; Z68.35 Body mass index [BMI] 35.0-35.9, adult
CPT/HCPCS: 36415; 74177; 80048; 80053; 82040; 82607; 82657; 82728; 82746; 83540; 83550; 83605; 83690; 83735; 84100; 84443; 85025; 85610; 85730; 86140; 86480; 86704; 87046; 87252; 87324; 87328; 87329; 87340; 88305; 89055; 93005; 96361; 96365; 96375; G0378; J0295; J0744; J1650; J1756; J2250; J2405; J3010; J3480; J7070; Q9967; J0500; J2270; J2920; J3475; J7030

== ENCOUNTER → 2019-02-09 | Outpatient (CLI) | payer MEDICARE ==
[~2019-02-09] MED LIST changes: +CIPR500T87 PO; +METR500T PO; +[UNRECOGNIZED DRUG - OTHER]
[2019-02-09 12:51] LABS: BASOPHILS # (AUTO) 0.04 x10^3/uL (0-0.1); BASOPHILS % (AUTO) 1 % (0-1); EOSINOPHILS # (AUTO) 0.28 x10^3/uL (0-0.4); EOSINOPHILS % (AUTO) 5 % (1-7); LYMPHOCYTES # (AUTO) 1.26 x10^3/uL (1-3.4); LYMPHOCYTES % (AUTO) 21 % (22-44); MD NO; MEAN CORPUSCULAR HEMOGLOBIN 30.7 pg (27.0-34.8); MEAN CORPUSCULAR HGB CONC 34.7 g/dL (32.4-35.8); MEAN CORPUSCULAR VOLUME 88.3 fL (80-100); MEAN PLATELET VOLUME 7.9 fL (7.4-10.4); MONOCYTES # (AUTO) 0.43 x10^3/uL (0.2-0.8); MONOCYTES % (AUTO) 7 % (2-9); NEUTROPHILS # (AUTO) 3.94 x10^3/uL (1.8-6.8); NEUTROPHILS % (AUTO) 66 % (42-75); PLATELET COUNT 323 x10^3/uL (130-400); RED BLOOD COUNT 4.37 x10^6/uL (3.82-5.3); RED CELL DISTRIBUTION WIDTH 13.2 % (9.6-15.2)
[2019-02-09 13:00] LABS: ALANINE AMINOTRANSFERASE 22 U/L (12-78); ALBUMIN 3.6 g/dL (3.4-5.0); ANION GAP 4 mmol/L (5-15); CALCIUM 9.5 mg/dL (8.5-10.1); CHLORIDE 110 mmol/L (98-107)
[2019-02-09 13:03] LABS: ALKALINE PHOSPHATASE 79 U/L (45-117); BILIRUBIN,TOTAL 0.4 mg/dL (0.2-1.0); CREATININE 1.12 mg/dL (0.55-1.02); TOTAL PROTEIN 7.1 g/dL (6.4-8.2)
== END | disposition home or self-care (01) ==
LOC: CFH 09:54
PROVIDERS: ATTEND Radiology Radiation Oncology
DX: C34.90 Malignant neoplasm of unspecified part of unspecified bronchus or lung (principal); C50.912 Malignant neoplasm of unspecified site of left female breast; R91.1 Solitary pulmonary nodule; I10 Essential (primary) hypertension
CPT/HCPCS: 36415; 71250; 80053; 85025

== ENCOUNTER → 2019-02-17 | Outpatient (CLI) | payer MEDICARE | END | disposition home or self-care (01) | LOC: ROC 11:38 | PROVIDERS: ATTEND Radiology Radiation Oncology | DX: C50.412 Malignant neoplasm of upper-outer quadrant of left female breast (principal) | CPT/HCPCS: G0463 ==

== ENCOUNTER 2019-06-03 08:57 | Outpatient (CLI) | payer MEDICARE | END 2019-06-03 23:59 | disposition home or self-care (01) | LOC: ROC 08:57 | PROVIDERS: ATTEND Radiology Radiation Oncology | DX: C50.412 Malignant neoplasm of upper-outer quadrant of left female breast (principal) | CPT/HCPCS: G0463 ==

== ENCOUNTER → 2019-09-09 | Outpatient (CLI) | payer MEDICARE ==
[~2019-09-09] MED LIST changes: +CYAN-27 PO; -CYAN10005 PO; +OMNIPAQUE 350 MG/ML, 100ML BOTTLE ONE
== END | disposition home or self-care (01) ==
LOC: RAD 10:30
PROVIDERS: ATTEND Internal Medicine Hematology & Oncology
DX: C78.7 Secondary malignant neoplasm of liver and intrahepatic bile duct (principal); N28.1 Cyst of kidney, acquired; K57.30 Diverticulosis of large intestine without perforation or abscess without bleeding; J98.4 Other disorders of lung; I70.0 Atherosclerosis of aorta; M85.89 Other specified disorders of bone density and structure, multiple sites; Z85.118 Personal history of other malignant neoplasm of bronchus and lung; Z85.3 Personal history of malignant neoplasm of breast
CPT/HCPCS: 74178; Q9967

== ENCOUNTER → 2019-09-20 | Day surgery (SDC) | payer MEDICARE ==
[~2019-09-20] VITALS: Ht 167.6 cm; Wt 79.9 kg
[~2019-09-20] MED LIST changes: +FENTANYL PF 100 MCG/2ML ONE; +FLUMAZENIL 0.1 MG/1 ML, 5ML ONE; +MIDAZOLAM 1 MG/ML, 5ML ONE; +NALOXONE 1 MG/ML, 2ML ONE; -OMNIPAQUE 350 MG/ML, 100ML BOTTLE ONE; +SODIUM CHLORIDE 0.9% 1,000 ML IV SCH
[2019-09-20 09:19] VITALS: BP 125/78
[2019-09-20 09:56] LABS: INTERNATIONAL NORMALIZED RATIO 0.92 (0.93-1.1); PROTHROMBIN TIME 9.7 Seconds (9.6-11.5)
== END | disposition home or self-care (01) ==
LOC: RAD 08:37
PROVIDERS: ATTEND Internal Medicine Hematology & Oncology
DX: K76.9 Liver disease, unspecified (principal); C34.90 Malignant neoplasm of unspecified part of unspecified bronchus or lung; C50.912 Malignant neoplasm of unspecified site of left female breast; I10 Essential (primary) hypertension; F41.8 Other specified anxiety disorders; E78.00 Pure hypercholesterolemia, unspecified; Z17.0 Estrogen receptor positive status [ER+]; Z79.82 Long term (current) use of aspirin; Z79.899 Other long term (current) drug therapy; Z87.891 Personal history of nicotine dependence; Z98.890 Other specified postprocedural states
CPT/HCPCS: 36415; 47000; 77012; 85610; 99156; 99157; J2250; J3010; J2310

== ENCOUNTER → 2019-09-29 | Outpatient (CLI) | payer MEDICARE ==
[~2019-09-29] MED LIST changes: -FENTANYL PF 100 MCG/2ML ONE; -FLUMAZENIL 0.1 MG/1 ML, 5ML ONE; -MIDAZOLAM 1 MG/ML, 5ML ONE; -NALOXONE 1 MG/ML, 2ML ONE; -SODIUM CHLORIDE 0.9% 1,000 ML IV SCH
== END | disposition home or self-care (01) ==
LOC: ROC 08:43
PROVIDERS: ATTEND Radiology Radiation Oncology
DX: C50.412 Malignant neoplasm of upper-outer quadrant of left female breast (principal)
CPT/HCPCS: G0463

== ENCOUNTER → 2019-09-30 | Outpatient (CLI) | payer MEDICARE | END | disposition home or self-care (01) | LOC: PETCFH 07:28 | PROVIDERS: ATTEND Internal Medicine Hematology & Oncology | DX: C34.90 Malignant neoplasm of unspecified part of unspecified bronchus or lung (principal); C50.912 Malignant neoplasm of unspecified site of left female breast; Z90.710 Acquired absence of both cervix and uterus | CPT/HCPCS: 78815; A9552 ==

== ENCOUNTER → 2019-10-03 | Outpatient (CLI) | payer MEDICARE ==
[~2019-10-03] MED LIST changes: +GADOTERATE 10 MMOL/20 ML VIAL ONE
== END | disposition home or self-care (01) ==
LOC: CFH 12:54
PROVIDERS: ATTEND Radiology Radiation Oncology
DX: K76.89 Other specified diseases of liver (principal); C50.912 Malignant neoplasm of unspecified site of left female breast; C34.90 Malignant neoplasm of unspecified part of unspecified bronchus or lung; I10 Essential (primary) hypertension
CPT/HCPCS: 74183; A9575

== ENCOUNTER → 2019-12-28 | Outpatient (CLI) | payer MEDICARE ==
[~2019-12-28] MED LIST changes: -GADOTERATE 10 MMOL/20 ML VIAL ONE; +OMNIPAQUE 350 MG/ML, 100ML BOTTLE ONE
== END | disposition home or self-care (01) ==
LOC: CFH 09:03
PROVIDERS: ATTEND Radiology Radiation Oncology
DX: J43.2 Centrilobular emphysema (principal); K76.0 Fatty (change of) liver, not elsewhere classified; K80.20 Calculus of gallbladder without cholecystitis without obstruction; N28.1 Cyst of kidney, acquired; I70.0 Atherosclerosis of aorta; K57.30 Diverticulosis of large intestine without perforation or abscess without bleeding; R91.8 Other nonspecific abnormal finding of lung field; M95.4 Acquired deformity of chest and rib; M48.55XA Collapsed vertebra, not elsewhere classified, thoracolumbar region, initial encounter for fracture; Z90.2 Acquired absence of lung [part of]; Z85.118 Personal history of other malignant neoplasm of bronchus and lung
CPT/HCPCS: 71260; 74178; Q9967

== ENCOUNTER 2019-12-30 08:49 | Outpatient (CLI) | payer MEDICARE ==
[~2019-12-30 08:49] MED LIST changes: -OMNIPAQUE 350 MG/ML, 100ML BOTTLE ONE
== END 2019-12-30 23:59 | disposition home or self-care (01) ==
LOC: ROC 08:49
PROVIDERS: ATTEND Radiology Radiation Oncology
DX: C50.412 Malignant neoplasm of upper-outer quadrant of left female breast (principal)
CPT/HCPCS: G0463

== ENCOUNTER 2020-04-04 12:49 | Outpatient (CLI) | payer MEDICARE ==
[2020-04-04] MEDS ORDERED: OMNIPAQUE 350 MG/ML, 100ML BOTTLE ONE (13:53)
== END 2020-04-04 23:59 | disposition home or self-care (01) ==
LOC: CFH 12:49
PROVIDERS: ATTEND Radiology Radiation Oncology
DX: C34.12 Malignant neoplasm of upper lobe, left bronchus or lung (principal); C50.412 Malignant neoplasm of upper-outer quadrant of left female breast; M48.54XA Collapsed vertebra, not elsewhere classified, thoracic region, initial encounter for fracture; R91.8 Other nonspecific abnormal finding of lung field; K80.20 Calculus of gallbladder without cholecystitis without obstruction
CPT/HCPCS: 71260; 74177; Q9967

== ENCOUNTER 2020-04-06 07:48 | Outpatient (CLI) | payer MEDICARE | END 2020-04-06 23:59 | disposition home or self-care (01) | LOC: ROC 07:48 | PROVIDERS: ATTEND Radiology Radiation Oncology | DX: Z08 Encounter for follow-up examination after completed treatment for malignant neoplasm (principal); C50.412 Malignant neoplasm of upper-outer quadrant of left female breast; C34.12 Malignant neoplasm of upper lobe, left bronchus or lung | CPT/HCPCS: G0463 ==

== ENCOUNTER → 2020-07-12 | Outpatient (CLI) | payer MEDICARE ==
[~2020-07-12] MED LIST changes: +ANAS1TAB49 PO; +OXYC5TAB3 PO; +TRAN4TAB23 PO
== END | disposition home or self-care (01) ==
LOC: ROC 09:33
PROVIDERS: ATTEND Radiology Radiation Oncology
DX: C50.412 Malignant neoplasm of upper-outer quadrant of left female breast (principal); C79.31 Secondary malignant neoplasm of brain; C79.51 Secondary malignant neoplasm of bone; I10 Essential (primary) hypertension; E78.5 Hyperlipidemia, unspecified; F41.9 Anxiety disorder, unspecified; F32.9 Major depressive disorder, single episode, unspecified; Z79.899 Other long term (current) drug therapy; Z87.891 Personal history of nicotine dependence; Z90.710 Acquired absence of both cervix and uterus
CPT/HCPCS: G0463

== ENCOUNTER → 2020-07-16 | Outpatient (CLI) | payer MEDICARE ==
[2020-07-16 16:17] LABS: MICROSCOPIC AUTO
== END | disposition home or self-care (01) ==
LOC: CFH 15:36
PROVIDERS: ATTEND Radiology Radiation Oncology
DX: C79.51 Secondary malignant neoplasm of bone (principal); R33.9 Retention of urine, unspecified; R10.9 Unspecified abdominal pain
CPT/HCPCS: 81001; 87077; 87086; 87186

== ENCOUNTER → 2020-07-19 | Outpatient (CLI) | payer MEDICARE | END | disposition home or self-care (01) | LOC: PETCFH 08:38 | PROVIDERS: ATTEND Internal Medicine Hematology & Oncology | DX: C50.912 Malignant neoplasm of unspecified site of left female breast (principal); C34.90 Malignant neoplasm of unspecified part of unspecified bronchus or lung; R91.8 Other nonspecific abnormal finding of lung field | CPT/HCPCS: 78815; A9552 ==

== ENCOUNTER 2020-07-23 11:00 | Outpatient (CLI) | payer MEDICARE ==
[2020-07-23] MEDS ORDERED: GADOTERATE 7.5 MMOL/15 ML SYR ONE (12:56)
== END 2020-07-23 23:59 | disposition home or self-care (01) ==
LOC: CFH 11:00 → EDSTATUS 11:30 → CFH 23:59
PROVIDERS: ATTEND Radiology Radiation Oncology
DX: C79.51 Secondary malignant neoplasm of bone (principal)
CPT/HCPCS: 72157; A9575

== ENCOUNTER 2020-08-29 09:36 | Outpatient (CLI) | payer MEDICARE ==
[2020-08-29] MEDS ORDERED: GADOTERATE 7.5 MMOL/15 ML SYR ONE (15:02)
== END 2020-08-29 23:59 | disposition home or self-care (01) ==
LOC: CFH 09:36
PROVIDERS: ATTEND Radiology Radiation Oncology
DX: C79.31 Secondary malignant neoplasm of brain (principal); G93.89 Other specified disorders of brain
CPT/HCPCS: 70553; A9575